=== PATIENT | female | born 1970 | race Caucasian/White ===

== ENCOUNTER → 2021-03-05 | Outpatient (CLI) | payer MEDICARE, MEDICAID ==
--- NOTE | 2021-03-07 14:50 | SLEEPHOME ---
DATE: 03/05/2021 ORDERED BY: IRA Gerber [facility] home sleep testing was performed due to concern for the obstructive sleep apnea syndrome. For testing, a nocturnal T3 respiratory monitoring device was used. Continuous record was made of pulse, oxygen saturation, air flow, chest and abdominal strain, and body position. There was 9 hours and 59 minutes of data reviewed. There was 3 hours and 42 minutes marked as time in bed. During the interval marked time in bed, there were 314 respiratory events identified of 10 seconds in duration or greater for a respiratory event index of 84.7. The events were primarily obstructive. Nine mixed and central apneas were noted. Baseline pulse rate 69. Pulse rate ranged 60-124. Baseline saturation 92%. Saturations fell to 84%. Testing was performed in both the supine and nonsupine positions. IMPRESSION: Abnormal home sleep testing with repetitive respiratory events and oxygen desaturations to 84% with a respiratory event index of 84.7 is consistent with the obstructive sleep apnea syndrome. RECOMMENDATION: The patient should be encouraged to undergo formal sleep evaluation.
== END ==
LOC: M SLEEP HO 11:18
PROVIDERS: ATTEND Nurse Practitioner Family
DX: G47.33 Obstructive sleep apnea (adult) (pediatric) (principal)

== ENCOUNTER 2021-06-12 08:16 | Emergency (ER) | payer MEDICAID, MEDICARE, OTHER ==
[~2021-06-12] VITALS: Ht 175.3 cm; Wt 153.6 kg
[2021-06-12] MEDS ORDERED: ONDANSETRON 4MG/2ML VIAL IV ONE (08:45)
[2021-06-12] MEDS ORDERED: MORPHINE 4 MG/ML 1ML VIAL/SYRINGE (J2270) IV ONE (08:45)
[2021-06-12] MEDS ORDERED: NS 1,000 ML IV ONE (08:45)
[2021-06-12] MEDS ORDERED: NEOSPORIN OINT 0.9 GM PKT TOP ONE (08:50)
[2021-06-12] MEDS ORDERED: TIZA4CAP PO ×2 (08:51→08:53)
[2021-06-12] MEDS ORDERED: ELIQ5TAB PO (08:53)
[2021-06-12] MEDS ORDERED: KRIL1CAP6 PO (08:54)
[2021-06-12] MEDS ORDERED: VITA-243 PO (08:54)
[2021-06-12] MEDS ORDERED: VITAMIN D PO (08:56)
[2021-06-12] MEDS ORDERED: AMLO1TAB25 PO (08:56)
[2021-06-12] MEDS ORDERED: ATOR40TA75 PO (09:06)
[2021-06-12] MEDS ORDERED: GABA-282 PO (09:06)
[2021-06-12] MEDS ORDERED: CYMB60CA3 PO (09:06)
[2021-06-12] MEDS ORDERED: LEVOTAB10 PO (09:06)
[2021-06-12] MEDS ORDERED: FENO160T10 PO (09:06)
[2021-06-12] MEDS ORDERED: METO50TA7 PO (09:06)
[2021-06-12] MEDS ORDERED: MONT10TA10 PO (09:06)
[2021-06-12] MEDS ORDERED: CLOP75TA2 PO (09:06)
[2021-06-12] MEDS ORDERED: METOCLOPRAMIDE INJ 10MG/2ML VIAL (J2765 PER 1) IV ONE (09:40)
[2021-06-12] MEDS ORDERED: LABETALOL 100MG/20ML VIAL IV STA (09:41)
[2021-06-12 09:47] LABS: BASO # 0.1 10^3/uL (0.0-0.2); BASO % 0.5 % (0.0-1.0); EOS # 0.3 10^3/uL (0.0-0.5); EOS % 2.5 % (0.0-3.0); HEMATOCRIT 47.2 % (36.0-47.0); LYMPH # 2.2 10^3/uL (1.5-5.0); LYMPH % 15.7 % (24.0-44.0); MEAN CORPUSCULAR HEMOGLOBIN 30.8 pg (27.0-33.0); MEAN CORPUSCULAR HGB CONC 33.9 g/dl (32.0-36.5); MEAN CORPUSCULAR VOLUME 90.8 fl (80.0-96.0); MONO % 7.2 % (2.0-8.0); NEUTROPHILS % 72.9 % (36.0-66.0); PLATELET COUNT, AUTOMATED 237 10^3/uL (150-450); WHITE BLOOD COUNT 13.7 10^3/uL (4.0-10.0)
[2021-06-12] MEDS ORDERED: ISOVUE-370 76% 100ML VIAL As Ordered ONE (09:55)
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
[2021-06-12] MEDS ORDERED: NORCO, ANEXSIA 5/325MG TABLET (HYDROcodone/ACETAMINOPHEN) PO ONE (11:30)
[2021-06-12] MEDS ORDERED: AUGMENTIN 875 MG TAB PO ONE (11:30)
[2021-06-12] MEDS ORDERED: HYDR-3713 PO (11:34)
[2021-06-12] MEDS ORDERED: AUGM875T28 PO (11:34)
[2021-06-12 12:19] VITALS: BP 130/69
--- NOTE | 2021-06-13 05:52 | ECGEPIP ---
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 Order Number: [id number] Reading MD: Sage Armenta Measurements Intervals [place] Rate: 70 P: 71 IN: 174 QRS: 90 QRSD: 98 T: 86 QT: 446 QTc: 481 Interpretive Statements Normal sinus rhythm Rightward axis Nonspecific T wave abnormality Prolonged QT NO PRIORS FOR COMPARISON Electronically Signed on 06-13-2021 5:52:11 EDT by Sage Armenta
--- NOTE | 2021-06-14 12:29 | ED PDOC ---
Post-Departure Follow-Up ct chest faxed to [facility] for [facility] Zachariah Mishra MD Jun 14, 2021 12:29
== END 2021-06-12 12:42 | disposition home or self-care (01) ==
LOC: M ED 08:16 → EDBD 08:16 → M ED 12:42
DX: S22.42XA Multiple fractures of ribs, left side, initial encounter for closed fracture (principal); S50.312A Abrasion of left elbow, initial encounter; V49.40XA Driver injured in collision with unspecified motor vehicles in traffic accident, initial encounter; R94.31 Abnormal electrocardiogram [ECG] [EKG]; J18.9 Pneumonia, unspecified organism; I25.10 Atherosclerotic heart disease of native coronary artery without angina pectoris; Z88.2 Allergy status to sulfonamides; Z79.899 Other long term (current) drug therapy; Z88.1 Allergy status to other antibiotic agents; Z79.01 Long term (current) use of anticoagulants
CPT/HCPCS: 71260; 73030; 73060; 80047; 85025; 86850; 86900; 86901; 93005; 93041; 94010; 96361; 96374; 96375; 99285; J2270; J2765; Q9967

== ENCOUNTER → 2021-07-26 | Outpatient (CLI) | payer OTHER, MEDICARE, MEDICAID ==
[~2021-07-26] MED LIST: AMLO1TAB25 PO; ATOR40TA75 PO; AUGM875T28 PO; CLOP75TA2 PO; CYMB60CA4 PO; ELIQ5TAB PO; FENO160T10 PO; GABA-282 PO; HYDR-3713 PO; KRIL1CAP6 PO; LEVOTAB10 PO; METO50TA7 PO; MONT10TA10 PO; PROHANCE 279.3MG/ML 15ML VIAL As Ordered ONE; PROHANCE 279.3MG/ML 5ML VIAL As Ordered ONE; TIZA4CAP PO; VITA-243 PO; VITAMIN D PO
--- NOTE | 2021-07-27 22:41 | REPVR ---
PROCEDURE INFORMATION: Exam: MR Cervical Spine Without and With Contrast Exam date and time: 07/26/2021 6:50 PM Age: 50 years old Clinical indication: Neck pain and radicular pain (radiculopathy); Cervical region; Additional info: Lt shoulder pain numbness, neck pain TECHNIQUE: Imaging protocol: Multiplanar magnetic resonance images of the cervical spine without and with contrast. Contrast material: PROHANCE; Contrast volume: 20 ml; Contrast route: INTRAVENOUS (IV); COMPARISON: CT Chest with contrast 06/12/2021 9:58 AM FINDINGS: Limitations: Examination is limited by motion artifact. Cervical vertebral body heights are intact. Straightening of the cervical lordosis. The dens is intact. No abnormal marrow signal. No cord compression, expansion, or abnormal cord signal. Visualized structures of the posterior fossa are unremarkable. Soft tissues are unremarkable. C2-C3: Uncovertebral spurring and facet hypertrophy cause moderate left foraminal narrowing. No significant canal narrowing. C3-C4: Uncovertebral spurring and facet hypertrophy cause mild right and severe left foraminal narrowing. No significant canal narrowing. C4-C5: Uncovertebral spurring and facet hypertrophy cause moderate left and severe right foraminal narrowing. No significant canal narrowing. C5-C6: Posterior disc protrusion and uncovertebral spurring cause mild to moderate canal narrowing and severe bilateral foraminal narrowing. C6-C7: Uncovertebral spurring causes moderate right and severe left foraminal narrowing. No significant canal narrowing. C7-T1: No significant canal or foraminal narrowing. IMPRESSION: Multilevel advanced spondylotic changes of the cervical spine, as detailed above. Electronically signed by: Jasbir Briones On 07/27/2021 22:40:48 PM
== END ==
LOC: M RAD 17:10
PROVIDERS: ATTEND Nurse Practitioner
DX: M50.222 Other cervical disc displacement at C5-C6 level (principal); M47.812 Spondylosis without myelopathy or radiculopathy, cervical region; M25.512 Pain in left shoulder; R20.0 Anesthesia of skin
CPT/HCPCS: 72156; A9576

== ENCOUNTER → 2021-08-13 | Outpatient (CLI) | payer OTHER ==
[~2021-08-13] MED LIST changes: -PROHANCE 279.3MG/ML 5ML VIAL As Ordered ONE
--- NOTE | 2021-08-14 07:50 | REP ---
INDICATION: LT SHOULDER PAIN W/ LT ARM NUMBNESS. COMPARISON: None. TECHNIQUE: Pre and post contrast 3T MRI of the left shoulder was performed utilizing various sequences. Gadolinium utilized: 12 cc ProHance FINDINGS: There is marked motion artifact throughout the examination significantly limiting it. There is moderate hypertrophic degenerative change seen involving the acromioclavicular joint. The acromion process is type 3. There is patchy and linear T2 hyper signal seen throughout the supraspinatus tendon some of which appears full-thickness but obscured by motion artifact. There is no evidence of supraspinatus musculotendinous retraction. The supraspinatus muscle appears mildly atrophied. Due to the motion artifact the subscapularis, infraspinatus, and teres minor tendons cannot be accurately commented on. No full thickness tear, however, is evident. The biceps tendon resides within the bicipital groove. There is no glenohumeral joint effusion or significant fluid in the subcoracoid recess. Due to the artifact the labrum and biceps labral complex cannot be accurately assessed. IMPRESSION: 1. There is supraspinatus tendinitis/tendinosis. A partial full-thickness tear cannot be ruled out. 2. 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 3. Other findings and limitations as described above. <Electronically signed by Ej Guevara > 08/14/21 0796
== END ==
LOC: M RAD 15:02
PROVIDERS: ATTEND Nurse Practitioner
DX: M79.602 Pain in left arm (principal)
CPT/HCPCS: 73223; A9576

== ENCOUNTER → 2021-08-21 | Outpatient (CLI) | payer MEDICARE ==
[~2021-08-21] MED LIST changes: -PROHANCE 279.3MG/ML 15ML VIAL As Ordered ONE
--- NOTE | 2021-08-21 14:10 | REPVR ---
PROCEDURE INFORMATION: Exam: CT Head Without Contrast Exam date and time: 08/21/2021 1:55 PM Age: 50 years old Clinical indication: Pain; Headache; Additional info: Neuralgia, cervicalgia, headaches TECHNIQUE: Imaging protocol: Computed tomography of the head without contrast. Radiation optimization: All CT scans at this facility use at least one of these dose optimization techniques: automated exposure control; mA and/or kV adjustment per patient size (includes targeted exams where dose is matched to clinical indication); or iterative reconstruction. COMPARISON: MRI-C SPINE W/O FOLL BY WITH 07/26/2021 6:06 PM FINDINGS: Brain: Normal. No hemorrhage. Unremarkable white matter. No mass effect. Cerebral ventricles: No ventriculomegaly. Paranasal sinuses: Visualized sinuses are unremarkable. No fluid levels. Mastoid air cells: Visualized mastoid air cells are well aerated. Bones/joints: Unremarkable. No acute fracture. Soft tissues: Unremarkable. IMPRESSION: No acute intracranial abnormality. Electronically signed by: Katrina Ramirez On 08/21/2021 14:10:37 PM
--- NOTE | 2021-08-21 14:14 | REPVR ---
PROCEDURE INFORMATION: Exam: CT Cervical Spine Without Contrast Exam date and time: 08/21/2021 1:55 PM Age: 50 years old Clinical indication: Pain; Cervicalgia; Additional info: Neuralgia, cervicalgia, headaches TECHNIQUE: Imaging protocol: Computed tomography images of the cervical spine without contrast. Radiation optimization: All CT scans at this facility use at least one of these dose optimization techniques: automated exposure control; mA and/or kV adjustment per patient size (includes targeted exams where dose is matched to clinical indication); or iterative reconstruction. COMPARISON: MRI-C SPINE W/O FOLL BY WITH 07/26/2021 6:06 PM FINDINGS: Bones/joints: There is mild reversal the normal cervical lordosis. There is 3 mm of anterolisthesis of C4 with respect to C5. Normal vertebral body alignment is otherwise preserved. Discs/Spinal canal/Neural foramina: There is moderate to severe intervertebral disc space loss at C5/6 and C6/7. At C5/6, disc osteophyte complex and mild facet hypertrophy contribute to severe bilateral neural foraminal narrowing and mild canal stenosis. At C6/7, diffuse disc osteophyte complex asymmetric to the left and mild facet hypertrophy contribute to severe bilateral neural foraminal narrowing, left greater than right, and mild canal stenosis. Lungs: Lung apices are normal. Soft tissues: Unremarkable. IMPRESSION: No acute findings. Chronic changes, most pronounced at C5/6 and C6/7 as described. Electronically signed by: Katrina Ramirez On 08/21/2021 14:13:26 PM
== END ==
LOC: M RAD 13:44
PROVIDERS: ATTEND Psychiatry & Neurology Neurology
DX: M43.12 Spondylolisthesis, cervical region (principal); M25.78 Osteophyte, vertebrae; M48.02 Spinal stenosis, cervical region; M54.81 Occipital neuralgia; G44.221 Chronic tension-type headache, intractable

== ENCOUNTER 2023-01-02 05:28 | Emergency (ER) | payer MEDICARE ==
[~2023-01-02] VITALS: Ht 175.3 cm; Wt 149.7 kg
[~2023-01-02 05:28] MED LIST changes: -MONT10TA10 PO; +MONT10TA97 PO
[2023-01-02] MEDS ORDERED: ASPIRIN 81MG CHEW TABLET As Ordered ONE (06:03)
[2023-01-02] MEDS ORDERED: GI COCKTAIL 50ML BTL(HYOSCYAMINE/MAALOX/LIDOCAINE VISCOUS)(1:3:1) PO ONE (06:05)
[2023-01-02] MEDS ORDERED: ASPIRIN 81MG CHEW TABLET PO ONE (06:05)
[2023-01-02 06:09] LABS: BASO # 0.1 10^3/uL (0.0-0.2); BASO % 0.4 % (0.0-1.0); EOS # 0.5 10^3/uL (0.0-0.5); EOS % 3.5 % (0.0-3.0); HEMATOCRIT 47.9 % (36.0-47.0); HEMOGLOBIN 16.5 g/dl (12.0-15.5); LYMPH # 3.8 10^3/uL (1.5-5.0); LYMPH % 28.5 % (24.0-44.0); MEAN CORPUSCULAR HEMOGLOBIN 31.6 pg (27.0-33.0); MEAN CORPUSCULAR HGB CONC 34.4 g/dl (32.0-36.5); MEAN CORPUSCULAR VOLUME 91.8 fl (80.0-96.0); MONO % 7.4 % (2.0-8.0); NEUTROPHILS % 59.5 % (36.0-66.0); PLATELET COUNT, AUTOMATED 191 10^3/uL (150-450); RED BLOOD COUNT 5.22 10^6/uL (4.00-5.40); WHITE BLOOD COUNT 13.4 10^3/uL (4.0-10.0)
[2023-01-02] MEDS ORDERED: MORPHINE 4 MG/ML 1ML VIAL IV ONE (06:10)
[2023-01-02] MEDS ORDERED: ONDANSETRON 4MG 2ML VIAL IV ONE (06:10)
[2023-01-02] MEDS ORDERED: ISOVUE-370 76% 100ML VIAL As Ordered ONE (06:16)
[2023-01-02 06:22] LABS: INR 0.89; PROTHROMBIN TIME 12.2 SECONDS (12.5-14.5)
[2023-01-02 06:37] LABS: CK-MB VALUE MASS < 1.0 NG/ML (<3.6); LIPASE 48 U/L (12-53); RSV AMPLIFICATION NEGATIVE (NEGATIVE)
[2023-01-02 06:39] LABS: CPK CREATINE PHOSPHOKINASE 72 U/L (34-145); MB/CK RELATIVE INDEX 1.38 (< OR =4)
[2023-01-02 06:40] LABS: ALBUMIN 3.6 G/DL (3.2-5.2); ALKALINE PHOSPHATASE 89 U/L (46-116); ALT/SGPT 23 U/L (7.0-40); AST/SGOT 16 U/L (<34); BILIRUBIN,DIRECT 0.1 MG/DL (<0.4); BILIRUBIN,TOTAL 0.3 MG/DL (0.3-1.2); BLOOD UREA NITROGEN 20 MG/DL (9-23); CALCIUM LEVEL 9.2 MG/DL (8.5-10.1); CARBON DIOXIDE LEVEL 27 MMOL/L (20-31); CHLORIDE LEVEL 111 MMOL/L (98-107); GLOMERULAR FILTRATION RATE > 60.0 (>51); GLUCOSE, FASTING 116 MG/DL (60-100); POTASSIUM SERUM 3.5 MMOL/L (3.5-5.1); SODIUM LEVEL 144 MMOL/L (136-145); TOTAL PROTEIN 6.2 G/DL (5.7-8.2)
[2023-01-02 06:41] LABS: FREE T4 1.04 NG/DL (0.89-1.76)
[2023-01-02 06:42] LABS: THYROID STIMULATING HORMONE 2.595 uIU/ML (0.55-4.78)
[2023-01-02 07:23] VITALS: BP 135/73
[2023-01-02 07:44] LABS: CK-MB VALUE MASS < 1.0 NG/ML (<3.6)
[2023-01-02 07:45] LABS: CPK CREATINE PHOSPHOKINASE 59 U/L (34-145); MB/CK RELATIVE INDEX 1.69 (< OR =4)
== END 2023-01-02 08:12 | disposition left against medical advice (07) ==
LOC: M ED 05:28
DX: R07.9 Chest pain, unspecified (principal); E78.5 Hyperlipidemia, unspecified; I10 Essential (primary) hypertension; J45.909 Unspecified asthma, uncomplicated; F17.200 Nicotine dependence, unspecified, uncomplicated; Z79.01 Long term (current) use of anticoagulants; Z86.711 Personal history of pulmonary embolism; Z86.79 Personal history of other diseases of the circulatory system; Z88.1 Allergy status to other antibiotic agents; Z88.2 Allergy status to sulfonamides; Z91.030 Bee allergy status; Z79.2 Long term (current) use of antibiotics; Z79.899 Other long term (current) drug therapy; Z53.9 Procedure and treatment not carried out, unspecified reason
CPT/HCPCS: 71045; 71275; 72170; 73502; 80047; 80048; 80076; 82550; 82553; 83690; 83880; 84439; 84443; 84484; 85025; 85610; 85730; 87631; 93005; 93041; 93971; 94760; 96374; 96375; 99285; J2405; Q9967

== ENCOUNTER 2023-11-06 17:33 | Emergency (ER) | payer MEDICARE ==
[~2023-11-06] VITALS: Ht 175.3 cm; Wt 150.1 kg
[2023-11-06 17:43] VITALS: TEMP 97.5; O2SAT 94
[2023-11-06 18:12] VITALS: BP 99/57
[2023-11-06 18:20] LABS: BASO # 0.1 10^3/uL (0.0-0.2); BASO % 0.5 % (0.0-1.0); EOS # 0.5 10^3/uL (0.0-0.5); EOS % 4.1 % (0.0-3.0); HEMATOCRIT 49.7 % (36.0-47.0); HEMOGLOBIN 17.4 g/dl (12.0-15.5); LYMPH # 2.5 10^3/uL (1.5-5.0); MEAN CORPUSCULAR HEMOGLOBIN 31.9 pg (27.0-33.0); MEAN CORPUSCULAR VOLUME 91.2 fl (80.0-96.0); MONO # 1.1 10^3/uL (0.0-0.8); MONO % 9.7 % (2.0-8.0); NEUTROPHILS # 6.7 10^3/uL (1.5-8.5); NEUTROPHILS % 61.9 % (36.0-66.0); PLATELET COUNT, AUTOMATED 221 10^3/uL (150-450); RED BLOOD COUNT 5.45 10^6/uL (4.00-5.40); WHITE BLOOD COUNT 10.9 10^3/uL (4.0-10.0)
[2023-11-06] MEDS ORDERED: MULT-90 PO (18:27)
[2023-11-06] MEDS ORDERED: PRAZ1CAP (18:27)
[2023-11-06] MEDS ORDERED: ROSU40TA4 (18:27)
[2023-11-06] MEDS ORDERED: FLUT1BLS17 (18:27)
[2023-11-06] MEDS ORDERED: TIZA10TA (18:27)
[2023-11-06] MEDS ORDERED: RABE1TAB4 (18:27)
[2023-11-06] MEDS ORDERED: FEXO-112 PO (18:27)
[2023-11-06] MEDS ORDERED: D3 H2000 PO (18:27)
[2023-11-06] MEDS ORDERED: HYDR-3490 (18:27)
[2023-11-06] MEDS ORDERED: MELA10CA2 PO (18:28)
[2023-11-06] MEDS ORDERED: B-COTAB10 PO (18:28)
[2023-11-06 18:31] LABS: INR 1.09; PROTHROMBIN TIME 13.8 SECONDS (12.5-14.5)
[2023-11-06 18:32] LABS: PARTIAL THROMBOPLASTIN TIME 36.6 SECONDS (24.8-34.2)
[2023-11-06 18:35] LABS: CK-MB VALUE MASS < 1.0 NG/ML (<3.6); LIPASE 38 U/L (12-53)
[2023-11-06 18:37] LABS: ALBUMIN 3.4 G/DL (3.2-5.2); ALKALINE PHOSPHATASE 92 U/L (46-116); ALT/SGPT 28 U/L (7.0-40); AST/SGOT 18 U/L (<34); BILIRUBIN,DIRECT 0.1 MG/DL (<0.4); BILIRUBIN,TOTAL 0.3 MG/DL (0.3-1.2); BLOOD UREA NITROGEN 16 MG/DL (9-23); CALCIUM LEVEL 9.4 MG/DL (8.5-10.1); CARBON DIOXIDE LEVEL 30 MMOL/L (20-31); CHLORIDE LEVEL 108 MMOL/L (98-107); CPK CREATINE PHOSPHOKINASE 66 U/L (34-145); CREATININE FOR GFR 0.61 MG/DL (0.55-1.30); GLOMERULAR FILTRATION RATE > 60.0 (>51); GLUCOSE, FASTING 96 MG/DL (60-100); MB/CK RELATIVE INDEX 1.51 (< OR =4); POTASSIUM SERUM 3.6 MMOL/L (3.5-5.1); SODIUM LEVEL 142 MMOL/L (136-145); TOTAL PROTEIN 6.5 G/DL (5.7-8.2)
[2023-11-06 18:39] LABS: FREE T4 1.12 NG/DL (0.89-1.76)
[2023-11-06 18:40] LABS: THYROID STIMULATING HORMONE 1.665 uIU/ML (0.55-4.78)
[2023-11-06] MEDS ORDERED: MAALOX 30 ML SUSP *UDC PO ONE (18:55)
[2023-11-06 19:32] LABS: CK-MB VALUE MASS < 1.0 NG/ML (<3.6)
[2023-11-06 19:33] LABS: CPK CREATINE PHOSPHOKINASE 64 U/L (34-145); MB/CK RELATIVE INDEX 1.56 (< OR =4)
[2023-11-06 20:00] LABS: RSV AMPLIFICATION NEGATIVE (NEGATIVE)
== END 2023-11-06 19:23 | disposition left against medical advice (07) ==
LOC: EDBD 17:33 → M ED 17:33
DX: R07.9 Chest pain, unspecified (principal); I45.81 Long QT syndrome; E78.5 Hyperlipidemia, unspecified; F32.9 Major depressive disorder, single episode, unspecified; I25.2 Old myocardial infarction; F41.9 Anxiety disorder, unspecified; F17.200 Nicotine dependence, unspecified, uncomplicated; K21.9 Gastro-esophageal reflux disease without esophagitis; Z88.2 Allergy status to sulfonamides; Z91.030 Bee allergy status; Z79.01 Long term (current) use of anticoagulants; Z86.718 Personal history of other venous thrombosis and embolism; Z79.899 Other long term (current) drug therapy; Z79.891 Long term (current) use of opiate analgesic; Z53.9 Procedure and treatment not carried out, unspecified reason

== ENCOUNTER → 2024-03-11 | Outpatient (CLI) | payer MEDICARE ==
[~2024-03-11] MED LIST changes: +B-COTAB10 PO; +D3 H2000 PO; +FEXO-112 PO; +FLUT1BLS17; +HYDR-3490; +MELA10CA2 PO; +MULT-90 PO; +PRAZ1CAP; +RABE1TAB4; +ROSU40TA63; +TIZA10TA
== END ==
LOC: M WUC 14:21
PROVIDERS: ATTEND Physician Assistant
DX: S43.492A Other sprain of left shoulder joint, initial encounter (principal); Y93.9 Activity, unspecified; Y92.9 Unspecified place or not applicable

== ENCOUNTER → 2024-06-14 | Outpatient (REF) | payer MEDICARE, MEDICAID ==
[~2024-06-14] MED LIST changes: -ROSU40TA63; +ROSU40TA81
[2024-06-14 17:30] LABS: ALBUMIN 3.5 G/DL (3.2-5.2); ALKALINE PHOSPHATASE 83 U/L (46-116); ALT/SGPT 25 U/L (7.0-40); AST/SGOT 20 U/L (<34); BILIRUBIN,TOTAL 0.2 MG/DL (0.3-1.2); BLOOD UREA NITROGEN 11 MG/DL (9-23); CALCIUM LEVEL 9.5 MG/DL (8.5-10.1); CARBON DIOXIDE LEVEL 28 MMOL/L (20-31); CHLORIDE LEVEL 110 MMOL/L (98-107); CHOLESTEROL LEVEL 126 MG/DL (<200); CHOLESTEROL RISK RATIO 4.51 (<5); CREATININE FOR GFR 0.58 MG/DL (0.55-1.30); GLOMERULAR FILTRATION RATE > 60.0 (>51); GLUCOSE, FASTING 147 MG/DL (60-100); HDL CHOLESTEROL 27.9 MG/DL (>40); LDL CHOLESTEROL 35.3 MG/DL (<100); NON-HDL-C 98.1 MG/DL; POTASSIUM SERUM 4.3 MMOL/L (3.5-5.1); SODIUM LEVEL 142 MMOL/L (136-145); TOTAL PROTEIN 6.4 G/DL (5.7-8.2); TRIGLYCERIDES LEVEL 314 MG/DL (<150)
[2024-06-14 17:32] LABS: THYROID STIMULATING HORMONE 2.089 uIU/ML (0.55-4.78)
[2024-06-14 18:43] LABS: HEMOGLOBIN A1c 5.6 % (4.0-6.0)
== END ==
LOC: M LAB REF 16:25
PROVIDERS: ATTEND Physician Assistant
DX: I50.9 Heart failure, unspecified (principal); E66.01 Morbid (severe) obesity due to excess calories; Z79.899 Other long term (current) drug therapy